=== PATIENT | female | born 1945 | race American Indian/Alaskan Native ===

== ENCOUNTER 2016-10-18 09:03 | Outpatient (CLI) | payer MEDICARE ==
[2016-10-18 09:26] LABS: Basophils % (Auto) 0.9 % (0.0-1.8); Eosinophils % (Auto) 3.9 % (0.0-4.3); Hematocrit 42.4 % (30.3-42.9); Hemoglobin 13.9 gm/dl (10.1-14.3); Mean Corpuscular HGB Conc 33 % (30-34); Mean Corpuscular Hemoglobin 28 pg (28-32); Mean Corpuscular Volume 84 fl (79-97); Platelet Count 306 K/mm3 (140-440); Red Blood Count 5.03 M/mm3 (3.65-5.03); Red Cell Distribution Width 14.2 % (13.2-15.2); White Blood Count 9.8 K/mm3 (4.5-11.0)
[2016-10-18 09:48] LABS: Alanine Aminotransferase 15 units/L (7-56); Albumin/Globulin Ratio 1.3 %; Alkaline Phosphatase 58 units/L (35-129); Anion Gap 15 mmol/L; BUN/Creatinine Ratio 14.28; Blood Urea Nitrogen 10 mg/dL (7-17); Calcium 9.2 mg/dL (8.4-10.2); Carbon Dioxide 29 mmol/L (22-30); Chloride 102.3 mmol/L (98-107); Glucose 101 mg/dL (65-100); Potassium 3.9 mmol/L (3.6-5.0); Sodium 142 mmol/L (137-145)
[2016-10-18 09:50] LABS: Erythrocyte Sedimentation Rate 1 mm/Hr (0-20)
== END 2016-10-18 09:04 | disposition home or self-care (01) ==
LOC: NM 09:03
PROVIDERS: ATTEND Orthopaedic Surgery
DX: M25.561 Pain in right knee (principal); M25.562 Pain in left knee; I10 Essential (primary) hypertension; Z96.651 Presence of right artificial knee joint
CPT/HCPCS: 36415; 78306; 80053; 85025; 85652; A9503

== ENCOUNTER 2016-12-11 20:45 | Emergency (ER) | payer OTHER, MEDICARE ==
[2016-12-12] MEDS ORDERED: VALIUM PO ONE (02:01)
[2016-12-12] MEDS ORDERED: TORADOL IM ONE (02:01)
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
[2016-12-12 03:05] VITALS: BP 162/89
== END 2016-12-12 03:04 | disposition home or self-care (01) ==
LOC: ED 20:45
DX: S16.1XXA Strain of muscle, fascia and tendon at neck level, initial encounter (principal); M54.5 Low back pain; I10 Essential (primary) hypertension; E11.9 Type 2 diabetes mellitus without complications; M19.90 Unspecified osteoarthritis, unspecified site; G89.29 Other chronic pain; E78.5 Hyperlipidemia, unspecified; Z91.040 Latex allergy status; Z91.013 Allergy to seafood; V89.2XXA Person injured in unspecified motor-vehicle accident, traffic, initial encounter; Y93.9 Activity, unspecified; Y99.9 Unspecified external cause status; Y92.410 Unspecified street and highway as the place of occurrence of the external cause
CPT/HCPCS: 96372; 99283; J1885

== ENCOUNTER 2017-03-28 20:46 | Emergency (ER) | payer MEDICARE ==
[2017-03-28] MEDS ORDERED: ASPIRIN PO ONE (21:01)
[2017-03-28 21:46] LABS: Hematocrit 42.7 % (30.3-42.9); Mean Corpuscular HGB Conc 33 % (30-34); Mean Corpuscular Hemoglobin 28 pg (28-32); Mean Corpuscular Volume 84 fl (79-97); Red Blood Count 5.06 M/mm3 (3.65-5.03); Red Cell Distribution Width 14.4 % (13.2-15.2)
[2017-03-28 21:48] LABS: Platelet Count 348 K/mm3 (140-440)
[2017-03-28 22:07] LABS: BUN/Creatinine Ratio 15; Blood Urea Nitrogen 12 mg/dL (7-17); Calcium 9.4 mg/dL (8.4-10.2); Hemolysis Index 5
[2017-03-28 22:37] LABS: Bilirubin,Urine NEG (Negative); Blood,Urine SM (Negative); Color,Urine Red (Yellow); Nitrite,Urine NEG (Negative); Protein,Urine <15 mg/dL mg/dL (Negative); Urobilinogen,Urine < 2.0 mg/dL (<2.0)
[2017-03-28 22:46] LABS: Band Neutrophils # (Manual) 0.2 K/mm3; Platelet Estimate Consistent w Auto; Total Cells Counted 100
--- NOTE | 2017-03-28 22:48 | XRay Report ---
FINAL REPORT PROCEDURE: XR CHEST ROUTINE 2V TECHNIQUE: PA and lateral chest radiographs were obtained. CPT 22392 HISTORY: Shortness of breath COMPARISON: No prior studies are available for comparison. FINDINGS: Heart: Normal. Mediastinum/Vessels: Normal. Lungs/Pleural space: No infiltrate, effusion, or pneumothorax. Bony thorax: No acute osseous abnormality. Other: IMPRESSION: No pulmonary infiltrates are identified.
[2017-03-28] MEDS ORDERED: APRESOLINE IV ONE (23:37)
[2017-03-28] MEDS ORDERED: ASPIRIN ONE (23:42)
--- NOTE | 2017-03-28 23:46 | Emergency Department Report ---
HPI - General Chief Complaint: High BP Time Seen by Provider: 03/28/17 23:16 - HPI HPI: Physician 71 year-old female presents to the emergency department from home with complaint of elevated blood pressure. She has a history of hypertension for which she takes diltiazem, and Maxzide and says that she takes compliantly. She drinks one cup of caffeinated coffee per day. She denies any excessive salt use. She is not a tobacco smoker. She took the blood pressure at home and it was elevated and went to [facility] where they checked it and it was still found to be high. She denies any lower extremity edema, chest pain, headache, vision change, slurred speech or any neurological deficits. She does say that over the past week or so she has some intermittent shortness of breath. She denies any cough or fever. She has not taken anything for her symptoms prior to presentation. Her primary care physician is Dr. Ball. No recent travel or sick contacts at home. ED Past Medical Hx - Past Medical History Hx Hypertension: Yes Hx Diabetes: Yes Hx Arthritis: Yes (back) Additional medical history: chronic back pain. high cholesterol - Surgical History Additional Surgical History: back surgery 2010 - Social History Smoking Status: Former Smoker Substance Use Type: None - Medications Home Medications: Home Medications Medication Instructions Recorded Confirmed Last Taken Type ARIPiprazole [Abilify] 01/16/13 01/16/13 Unknown History Azithromycin [Zithromax] 01/16/13 01/16/13 Unknown History Cyclobenzaprine HCl [FLEXERIL] 10 mg PO TID PRN #12 tablet 01/16/13 Unknown Rx Diltiazem Cd [Cardizem CD] 01/16/13 01/16/13 Unknown History Meloxicam 01/16/13 01/16/13 Unknown History Oxycodone HCl/Acetaminophen 01/16/13 01/16/13 Unknown History [Percocet 7.5-325 mg] PARoxetine [Paxil] 01/16/13 01/16/13 Unknown History Pravastatin Sodium [Pravastatin] 01/16/13 01/16/13 Unknown History Sitagliptin Phos/Metformin HCl 01/16/13 01/16/13 Unknown History [Janumet 50-1,000 mg] Triamter/Hctz 37.5-25 mg 01/16/13 01/16/13 Unknown History [Maxzide-25] oxyCODONE ER [OxyCONTIN ER TAB] 01/16/13 01/16/13 Unknown History Oxycodone HCl/Acetaminophen 1 each PO Q6H PRN #28 tablet 02/03/14 Unknown Rx [Percocet 10-325 mg] HYDROcodone/APAP 5-325 [[place] 1 each PO Q6HR #14 tablet 12/12/16 Unknown Rx 5-325 mg TAB] ED Review of Systems ROS: Stated complaint: HTN Other details as noted in HPI Comment: All other systems reviewed and negative Constitutional: denies: chills, fever Eyes: denies: eye pain, eye discharge, vision change ENT: denies: ear pain, throat pain Respiratory: SOB with exertion. denies: cough Cardiovascular: denies: chest pain, palpitations Gastrointestinal: denies: abdominal pain, nausea, diarrhea Genitourinary: denies: urgency, dysuria, discharge Musculoskeletal: denies: back pain, joint swelling, arthralgia Skin: denies: rash, lesions Physical Exam - Physical Exam Vital Signs: Vital Signs 03/28/17 03/28/17 03/28/17 20:54 23:10 23:15 Temperature 98.1 F Pulse Rate 76 69 70 Respiratory 18 22 20 Rate Blood Pressure 197/92 187/87 Blood Pressure [Left] O2 Sat by Pulse 97 97 98 Oximetry 03/28/17 03/28/17 23:16 23:30 Temperature Pulse Rate 72 Respiratory 23 Rate Blood Pressure 185/87 Blood Pressure 192/77 [Left] O2 Sat by Pulse 98 Oximetry Physical Exam: GENERAL: The patient is well-developed well-nourished. HENT: Normocephalic. Atraumatic. Patient has moist mucous membranes. EYES: Extraocular motions are intact. Pupils equal reactive to light bilaterally. NECK: Supple. Trachea is midline. CHEST/LUNGS: Clear to auscultation. There is no respiratory distress noted. HEART/CARDIOVASCULAR: Regular. There is no tachycardia. There is no murmur. ABDOMEN: Abdomen is soft, nontender. Patient has normal bowel sounds. There is no abdominal distention. SKIN: Skin is warm and dry. NEURO: The patient is awake, alert, and oriented. The patient is cooperative. The patient has no focal neurologic deficits. The patient has normal speech. MUSCULOSKELETAL: There is no tenderness or deformity. There is no limitation range of motion. There is no evidence of acute injury. ED Course Vital Signs 03/28/17 03/28/17 03/28/17 20:54 23:10 23:15 Temperature 98.1 F Pulse Rate 76 69 70 Respiratory 18 22 20 Rate Blood Pressure 197/92 187/87 Blood Pressure [Left] O2 Sat by Pulse 97 97 98 Oximetry 03/28/17 03/28/17 23:16 23:30 Temperature Pulse Rate 72 Respiratory 23 Rate Blood Pressure 185/87 Blood Pressure 192/77 [Left] O2 Sat by Pulse 98 Oximetry ED Medical Decision Making - Lab Data Result diagrams: 03/28/17 21:35 03/28/17 21:35 - EKG Data -: EKG Interpreted by Me EKG shows normal: sinus rhythm, axis, intervals, QRS complexes, ST-T waves ( there is some flattening of the T waves to the lateral and inferior leads) Rate: normal - EKG Data When compared to previous EKG there are: no significant change Interpretation: unchanged when compared t (2013) - Radiology Data Radiology results: image reviewed interpreted by me: Chest x-ray does not show any acute process. There are no pleural effusions, obvious pneumonia and there is no pneumothorax. - Medical Decision Making Patient presented mostly for elevated blood pressure. However she mentioned that she has some exertional shortness of breath over the past week or so. She was given a dose of hydralazine which worked temporarily but her blood pressure came back up. Then she was given a dose of hydralazine with a half dose of labetalol and her blood pressure came down to a much more normal level. Her labs have been unremarkable. There is a very mild leukocytosis of 12,000, but otherwise no electrolyte abnormalities, renal insufficiency, glucose abnormalities and the patient had negative troponins 2. Chest x-ray does not show any pneumonia, pleural effusions, pneumothorax or any acute process. The patient was able to ambulate the entire length of the emergency department without any significant tachycardia or any hypoxia. The patient says that she is walking exactly how she always has and this was confirmed by her daughter, who is bedside. The patient will continue to take her blood pressure medication and is going to follow up with her primary care physician later today. She does not have any chest pain, resting shortness of breath, signs of respiratory distress and the patient is repeatedly asking for discharge home. However she will return to the emergency department if she develops any of these symptoms or with any acute process. The patient is not a smoker and says that she does not take any a lot of salt. We discussed staying away from the one caffeinated cup of coffee she drinks per day and she will keep a blood pressure log. - Differential Diagnosis pneumonia, CHF, hypertensive urgency, NE Critical Care Time: No Critical care attestation.: If time is entered above; I have spent that time in minutes in the direct care of this critically ill patient, excluding procedure time. ED Disposition Clinical Impression: Uncontrolled hypertension, Shortness of breath on exertion Disposition: - TO HOME OR SELFCARE Is pt being admited?: No Condition: Stable Instructions: Dyspnea (ED), Hypertension (ED) Additional Instructions: Please follow up with Dr. Ball as soon as possible, preferably later today. Try and stay away from foods that are high in salt and caffeinated products to help with her blood pressure. Keep a blood pressure log. Return to the emergency department with any development of chest pain, worsening of your symptoms, or any acute distress. Referrals: THOM BALL MD [Staff Physician] - [facility] Time of Disposition: 03:14
[2017-03-29] MEDS ORDERED: APRESOLINE IV ONE (01:31)
[2017-03-29] MEDS ORDERED: NORMODYNE IV ONE (01:32)
[2017-03-29 03:08] VITALS: BP 148/79
== END 2017-03-29 03:51 | disposition home or self-care (01) ==
LOC: ED 20:46
DX: I10 Essential (primary) hypertension (principal); R06.02 Shortness of breath; E11.9 Type 2 diabetes mellitus without complications; M19.90 Unspecified osteoarthritis, unspecified site; G89.29 Other chronic pain; E78.00 Pure hypercholesterolemia, unspecified; Z87.891 Personal history of nicotine dependence; Z91.040 Latex allergy status; Z91.013 Allergy to seafood
CPT/HCPCS: 36415; 71046; 80048; 81001; 84484; 85007; 85025; 93005; 93010; 96374; 96375; 96376; 99284; J0360

== ENCOUNTER 2018-10-02 07:15 | Emergency (ER) | payer MEDICARE ==
[2018-10-02 07:26] VITALS: BP 122/70
--- NOTE | 2018-10-02 08:24 | XRay Report ---
LEFT KNEE, 4 VIEWS INDICATION: Left knee pain and swelling. COMPARISON: None. IMPRESSION: Normal bone mineralization. Mild to moderate osteoarthritic changes are identified in al l 3 compartments of the knee. [place] view demonstrates moderate degenerative change in the lateral retropatellar space. No fracture, osteochondral defect or bone lesion is identified on x-ray. A moder ate joint effusion is identified on the lateral image. Signer Name: Zacarias Lieberman Jr, MD Signed: 10/02/2018 8:20 AM Workstation Name: [id number]
[2018-10-02] MEDS ORDERED: DECADRON IM ONE (09:42)
[2018-10-02] MEDS ORDERED: NORCO 5/325 PO ONE (09:42)
--- NOTE | 2018-10-02 10:10 | Emergency Department Report ---
ED General Adult HPI - General Chief complaint: Extremity Injury, Lower Stated complaint: LEFT KNEE PAIN Time Seen by Provider: 10/02/18 08:56 Source: patient Mode of arrival: Ambulatory Limitations: No Limitations - History of Present Illness Initial comments: Patient is a 73-year-old female with a history of arthritis who presents to the ED complaining of left knee pain for the past couple of days. Patient denies falling, injuries sustained a fall. Patient is having increased pain with knee movement and walking. She admits some swelling to the left knee area. Severity scale (0 -10): 8 - Related Data Previous Rx's Medication Instructions Recorded Last Taken Type Cyclobenzaprine HCl [FLEXERIL] 10 mg PO TID PRN #12 tablet 01/16/13 Unknown Rx HYDROcodone/APAP 5-325 [[place] 1 each PO Q6HR #14 tablet 12/12/16 Unknown Rx 5-325 mg TAB] Cyclobenzaprine [Flexeril] 10 mg PO QHS PRN #20 tablet 10/02/18 Unknown Rx Ibuprofen [Motrin] 800 mg PO Q8HR #25 tablet 10/02/18 Unknown Rx Allergies Allergy/AdvReac Type Severity Reaction Status Date / Time latex Allergy Rash Verified 12/12/16 02:39 shellfish derived Allergy Vomiting Verified 12/12/16 02:39 ED Review of Systems ROS: Stated complaint: LEFT KNEE PAIN Other details as noted in HPI Comment: All other systems reviewed and negative ED Past Medical Hx - Past Medical History Previous Medical History?: Yes Hx Hypertension: Yes Hx Diabetes: Yes Hx Arthritis: Yes (back) Additional medical history: chronic back pain. high cholesterol - Surgical History Past Surgical History?: Yes Additional Surgical History: back surgery 2010 - Social History Smoking Status: Never Smoker Substance Use Type: None - Medications Home Medications: Home Medications Medication Instructions Recorded Confirmed Last Taken Type Cyclobenzaprine HCl [FLEXERIL] 10 mg PO TID PRN #12 tablet 01/16/13 Unknown Rx HYDROcodone/APAP 5-325 [[place] 1 each PO Q6HR #14 tablet 12/12/16 Unknown Rx 5-325 mg TAB] Cyclobenzaprine [Flexeril] 10 mg PO QHS PRN #20 tablet 10/02/18 Unknown Rx Ibuprofen [Motrin] 800 mg PO Q8HR #25 tablet 10/02/18 Unknown Rx ED Physical Exam - General Limitations: No Limitations General appearance: alert, in no apparent distress - Head Head exam: Present: atraumatic, normocephalic - Eye Eye exam: Present: normal appearance - ENT ENT exam: Present: mucous membranes moist - Neck Neck exam: Present: normal inspection - Respiratory Respiratory exam: Present: normal lung sounds bilaterally. Absent: respiratory distress - Cardiovascular Cardiovascular Exam: Present: regular rate, normal rhythm. Absent: systolic murmur, diastolic murmur, rubs, gallop - GI/Abdominal GI/Abdominal exam: Present: soft, normal bowel sounds - Extremities Exam Extremities exam: Present: normal inspection - Back Exam Back exam: Present: normal inspection - Neurological Exam Neurological exam: Present: alert, oriented X3 - Psychiatric Psychiatric exam: Present: normal affect, normal mood - Skin Skin exam: Present: warm, dry, intact, normal color. Absent: rash ED Course Vital Signs 10/02/18 07:22 Temperature 98.1 F Pulse Rate 68 Respiratory 20 Rate Blood Pressure 122/70 O2 Sat by Pulse 95 Oximetry ED Medical Decision Making - Radiology Data Radiology results: report reviewed, image reviewed Ordering Physician: ROMEL SCHMITT Date of Service: 10/02/18 Procedure(s): XR knee 4+V LT Accession Number(s): [id number] cc: ROMEL SCHMITT Fluoro Time In Minutes: LEFT KNEE, 4 VIEWS INDICATION: Left knee pain and swelling. COMPARISON: None. IMPRESSION: Normal bone mineralization. Mild to moderate osteoarthritic changes are identified in all 3 compartments of the knee. [place] view demonstrates moderate degenerative change in the l ateral retropatellar space. No fracture, osteochondral defect or bone lesion is identified on x-ray. A moderate joint effusion is identified on the lateral image. Signer Name: Zacarias Lieberman Jr, MD Signed: 10/02/2018 8:20 AM Workstation Name: [id number] Transcribed By: TTR Dictated By: ZACARIAS LIEBERMAN JR, MD Electronically Authenticated By: ZACARIAS LIEBERMAN JR, MD Signed Date/Time: 10/02/18 0820 - Medical Decision Making 73-year-old female presents to ED with left knee joint effusion/ arthritis. X-ray shows arthritis and change effusion. Examination shows moderate swelling, to the left knee. There is no laceration or inability to flex and extend knee. Vital signs are normal patient is in no acute distress. Knee was Aravind wrapped. Patient states that she is currently visiting from [place] and is leaving on the plane tomorrow. Patient attempted to ambulate with limping. discussed with patient to follow up with her orthopedic doctor when she gets back to [place]. Critical care attestation.: If time is entered above; I have spent that time in minutes in the direct care of this critically ill patient, excluding procedure time. ED Disposition Clinical Impression: Arthritis of left knee, Knee effusion, left Disposition: DC-01 TO HOME OR SELFCARE Is pt being admited?: No Does the pt Need Aspirin: No Condition: Stable Instructions: Knee Effusion (ED), Osteoarthritis (ED) Additional Instructions: Make sure to follow up with the primary care physician as discussed. Follow-up with the orthopedic doctor once you get back to [place] tomorrow Take your medications as you've been prescribed. If you have any worsening symptoms or develop new symptoms please return to ED immediately. Prescriptions: Cyclobenzaprine [Flexeril] 10 mg PO QHS PRN #20 tablet PRN Reason: Muscle Spasm Ibuprofen [Motrin] 800 mg PO Q8HR #25 tablet Referrals: GUERLINE CONTRERAS DO [Other] - 3-5 Days Forms: Work/School Release Form(ED) Time of Disposition: 10:15
== END 2018-10-02 10:27 | disposition home or self-care (01) ==
LOC: ED 07:15
DX: M25.462 Effusion, left knee (principal); I10 Essential (primary) hypertension; E11.9 Type 2 diabetes mellitus without complications; M54.9 Dorsalgia, unspecified; G89.29 Other chronic pain; E78.00 Pure hypercholesterolemia, unspecified; Z98.890 Other specified postprocedural states; Z91.040 Latex allergy status; Z91.013 Allergy to seafood; Z79.1 Long term (current) use of non-steroidal anti-inflammatories (NSAID); Z79.899 Other long term (current) drug therapy
CPT/HCPCS: 73564; 96372; 99283; J1100